=== PATIENT | male | born 2000 | race Caucasian/White ===

== ENCOUNTER 2023-02-19 20:38 | Emergency (ER) | payer BC, SELFPAY ==
[2023-02-19 20:48] VITALS: BP 128/69; PULSE 64; RESP 20; TEMP 36.3; O2SAT 98; BMI 23.7
[2023-02-19] MEDS: ONDANSETRON 2 MG/ML inj 4 MG IVP (21:25)
[2023-02-19] MEDS: 0.9 % SODIUM CHLORIDE 1000 ml 1,000 ML IV ×2 (21:25→22:23)
[2023-02-19 21:28] LABS: Lactate* 1.9 mmol/L (0.5-1.9)
[2023-02-19 21:31] LABS: Basophils Percent Auto 0.1 % (0.0-3.0); Hematocrit 40.5 % (37.0-53.0); Hemoglobin* 14.6 gm/dL (13.5-17.5); Immature Granulocytes Pct Auto 0.1 %; Lymphocytes Percent Auto 11.4 % (20-44); Mean Corpuscular HGB Conc 36 gm/dL (32-36); Mean Corpuscular Hemoglobin 30 pg (26-34); Mean Corpuscular Volume 84 fL (80-100); Monocytes Percent Auto 5.4 % (0.0-11.0); Platelet Count* 275 K/uL (140-440); RDW Coefficient of Variation % 11.1 % (11.5-15.5); Red Blood Count 4.82 m/uL (4.30-5.90); Slide Review Reflex No; White Blood Count* 13.44 K/uL (4.50-11.00)
[2023-02-19 21:43] LABS: PCR FLU A Negative PCR FLU A (Negative); PCR FLU B Negative PCR FLU B (Negative); PCR RSV Negative PCR RSV (Negative); SARS PCR* Negative SARS-CoV-2 (Negative)
[2023-02-19 21:44] LABS: Albumin* 5.5 g/dL (3.3-5.0)
[2023-02-19 21:45] LABS: Chloride* 102 mmol/L (96-114); Potassium* 3.9 mmol/L (3.6-5.1); Sodium* 140 mmol/L (135-149)
[2023-02-19 21:47] LABS: Anion Gap 18 mEq/L (7-15); Bilirubin Direct* 0.3 mg/dL (0.0-0.5); Bilirubin Total* 2.4 mg/dL (0.1-1.5); Carbon Dioxide* 20 mmol/L (20-32); Creatinine* 0.9 mg/dL (0.5-1.5); Est. Creatinine Clearance* 140.11; Estimated Glomerular Filt Rate 123 ml/min
[2023-02-19 21:48] LABS: Alanine Aminotransferase* 17 U/L (4-50); Alkaline Phosphatase* 90 U/L (40-150); Aspartate Amino Transferase* 27 U/L (12-35); Blood Urea Nitrogen* 29 mg/dL (5-24); Glucose* 114 mg/dL (60-115); Lipase* 28 U/L (23-300); Total Protein* 9.2 g/dL (6.0-8.3)
[2023-02-19 22:05] VITALS: BP 118/66; PULSE 60; O2SAT 95
--- NOTE | 2023-02-19 22:10 | ED.GENADULT ---
HPI - General Adult General Chief complaint: Nausea/Vomiting Stated complaint: dehydrated, can't keep food down, vomiting Time Seen by Provider: 02/19/23 21:08 Source: patient Mode of arrival: ambulatory Limitations: no limitations History of Present Illness HPI narrative: 22-year-old male coming in today complaining of 2 days of vomiting. States he has been vomiting nonstop for the last 48 hours. He denies any fevers or chills. No diarrhea. No chest or abdominal pain. He denies any trauma. He does state that he smokes marijuana but tells me that it is not very frequently. Cannot be more specific than that. Denies any blood in his vomitus. No sick contacts that he is aware of. Related Data Home Medications Medication Instructions Recorded Confirmed guanfacine .ROUTE 02/19/23 sertraline .ROUTE 02/19/23 Previous Rx's Medication Instructions Recorded ondansetron HCl 4 mg tablet 4 mg PO TID PRN nausea and 02/19/23 vomiting #10 tabs Allergies Allergy/AdvReac Type Severity Reaction Status Date / Time tree nuts Allergy Unknown Uncoded 02/19/23 20:53 Review of Systems Status of ROS: Reports: 10 or more systems reviewed and unremarkable except as noted in History and below PFSH [facility] Social History Smoking Status: Current every day smoker Do you use any of these nicotine containing products: Vaping Products How often do you have a drink containing alcohol: never How often do you have six or more drinks on one occasion: Never AUDIT-C Alcohol total score: 0 Non-prescribed substance use: marijuana (any form) Exam Narrative: Exam Narrative: Well-nourished well-developed patient in no acute distress. Alert and oriented. Answers questions appropriately. Mood and affect are appropriate. Thoughts are goal oriented and rational. No tangential or magical thinking noted. Patient speaks in full sentences without needing to catch his breath. HEENT: Normocephalic atraumatic. Pupils are equally round reactive to light. Extraocular muscles are intact. Conjunctivae are moist without any icterus noted. Moist mucous membranes. Cardiovascular: Heart is regular rate and rhythm. Lungs: Clear to auscultation bilaterally. Abdomen: Soft and nontender nondistended with normal bowel sounds. Extremities: Bilateral lower extremities are without edema. Skin: Well perfused without any obvious rashes. Const: Vital Signs, click to edit/add: Vital Signs - 24 hr 02/19/23 20:48 02/19/23 22:05 Temperature 97.3 F L Pulse Rate [Pulse Oximeter] 64 60 Respiratory Rate 20 Blood Pressure [[facility] Upper [facility]] 128/69 118/66 Pulse Oximetry 98 95 Oxygen Delivery Me thod Room Air Room Air Course Course ED Course: Patient received 2 L of normal saline and IV Zofran while he was here. He did not have any vomiting episodes and he was taking p.o. liquids without difficulty. Lab work showing signs of dehydration. Vital Signs Vital signs: Initial Vital Signs Temperature 97.3 F L 02/19/23 20:48 Temperature Source Temporal Artery Scan 02/19/23 20:48 Pulse Rate 64 02/19/23 20:48 Respiratory Rate 20 02/19/23 20:48 Blood Pressure 128/69 02/19/23 20:48 Blood Pressure Mean 88 02/19/23 20:48 Blood Pressure Position Sitting 02/19/23 20:48 Pulse Oximetry 98 02/19/23 20:48 Oxygen Delivery Method Room Air 02/19/23 20:48 Vital Signs Temperature 97.3 F L 02/19/23 20:48 Pulse Rate 64 02/19/23 20:48 Respiratory Rate 20 02/19/23 20:48 Blood Pressure 128/69 02/19/23 20:48 Pulse Oximetry 98 02/19/23 20:48 Oxygen Delivery Method Room Air 02/19/23 20:48 Temperature 97.3 F L 02/19/23 20:48 Pulse Rate 60 02/19/23 22:05 Respiratory Rate 20 02/19/23 20:48 Blood Pressure 118/66 02/19/23 22:05 Pulse Oximetry 95 02/19/23 22:05 Oxygen Delivery Method Room Air 02/19/23 22:05 Medications Administered Medications: Generic Name Dose Route Start Last Admin Trade Name Freq PRN Reason Stop Dose Admin Sodium Chloride 1,000 mls @ 1,000 mls/hr 02/19/23 22:15 02/19/23 22:23 0.9 % Sodium Chloride 1000 Ml IV 02/19/23 23:14 1,000 mls/hr .Q1H MARIA DEL ROSARIO Administration Discontinued Medications Generic Name Dose Route Start Last Admin Trade Name Freq PRN Reason Stop Dose Admin Sodium Chloride 1,000 mls @ 1,000 mls/hr 02/19/23 21:15 02/19/23 22:22 0.9 % Sodium Chloride 1000 Ml IV 02/19/23 22:14 Infused .Q1H MARIA DEL ROSARIO Infusion Ondansetron HCl 4 mg 02/19/23 21:08 02/19/23 21:25 Ondansetron 2 Mg/Ml Inj IVP 02/19/23 21:09 4 mg ONCE ONE Administration Medical Decision Making MDM Narrative Medical decision making narrative: 22-year-old male with vomiting, symptoms improving. Lab Data Lab results reviewed: Yes I reviewed the patient's lab results Labs: Lab Results 02/19/23 02/19/23 Range/Units 21:00 21:20 WBC 13.44 H (4.50-11.00) K/uL RBC 4.82 (4.30-5.90) m/uL Hgb 14.6 (13.5-17.5) gm/dL Hct 40.5 (37.0-53.0) % MCV 84 (80-100) fL MCH 30 (26-34) pg MCHC 36 (32-36) gm/dL RDW Coeff of Ashish 11.1 L (11.5-15.5) % Plt Count 275 (140-440) K/uL Neut % (Auto) 83.0 H (42.0-72.0) % Lymph % (Auto) 11.4 L (20-44) % [place] % (Auto) 5.4 (0.0-11.0) % Eos % (Auto) 0.0 (0.0-7.0) % Baso % (Auto) 0.1 (0.0-3.0) % Neut # (Auto) 11.20 H (1.7-7.0) K/uL Lymph # (Auto) 1.50 (0.90-2.90) K/uL [place] # (Auto) 0.70 (0.00-0.90) K/UL Eos # (Auto) 0.00 (0.00-0.50) K/uL Baso # (Auto) 0.00 (0.00-0.30) K/uL Abs Immat Gran (auto) 0.00 (0.00-0.30) K/uL Imm/Tot Granulo (auto) 0.1 % Sodium 140 (135-149) mmol/L Potassium 3.9 (3.6-5.1) mmol/L Chloride 102 (96-114) mmol/L Carbon Dioxide 20 (20-32) mmol/L Anion Gap 18 H (7-15) mEq/L BUN 29 H (5-24) mg/dL Creatinine 0.9 (0.5-1.5) mg/dL Estimated Creat Clear 140.11 Estimated GFR 123 ml/min Glucose 114 (60-115) mg/dL Lactate 1.9 (0.5-1.9) mmol/L Calcium 10.0 (8.4-10.6) mg/dL Total Bilirubin 2.4 H (0.1-1.5) mg/dL Direct Bilirubin 0.3 (0.0-0.5) mg/dL AST 27 (12-35) U/L ALT 17 (4-50) U/L Alkaline Phosphatase 90 (40-150) U/L Total Protein 9.2 H (6.0-8.3) g/dL Albumin 5.5 H (3.3-5.0) g/dL Lipase 28 (23-300) U/L SARS-CoV-2 (PCR) Negative SARS-CoV-2 (Negative) Influenza Type A (PCR) Negative PCR FLU A (Negative) Influenza Type B (PCR) Negative PCR FLU B (Negative) RSV (PCR) Negative PCR RSV (Negative) Discharge Plan Discharge Clinical Impression: Vomiting Patient Disposition: Home, Self-Care Condition: Improved Additional Instructions: Stay hydrated by taking small sips of fluids frequently throughout the day. Recommend abstaining from any marijuana use. Prescriptions: New ondansetron HCl 4 mg tablet 4 mg PO TID PRN (Reason: nausea and vomiting) Qty: 10 0RF No Action sertraline .ROUTE guanfacine .ROUTE Follow Up/Referrals: Provider,Not a Local [Primary Care Provider] - Stand Alone Forms: MyHealth Info Instructions
== END 2023-02-19 22:55 | disposition home or self-care (01) ==
PROVIDERS: Emergency Provider Family Medicine
DX: R11.10 Vomiting, unspecified (principal)
CPT/HCPCS: 36415; 80048; 80076; 83605; 83690; 85025; 87631; 96361; 96374; 99284; J2405; J7030